=== PATIENT | male | born 1965 | race Caucasian/White ===

== ENCOUNTER → 2020-09-11 | Outpatient (CLI) | payer OTHER ==
[~2020-09-11] MED LIST: CETIRIZINE HCL10 MG PO; CHANTIX1 MG PO; FLONASE 0.05% N16 GM; KEFLEX CAP 500500 MG PO; MOBIC15 MG PO; NEURONTIN 300300 MG PO; OXYCONTIN10 MG PO; TRAZODONE HCL150 MG PO; ZANAFLEX4 M1 PO
== END ==
LOC: EXRD 09:20
DX: M25.561 Pain in right knee (principal); M17.11 Unilateral primary osteoarthritis, right knee
CPT/HCPCS: 73564

== ENCOUNTER → 2021-06-21 | Outpatient (CLI) | payer OTHER | LOC: KOH-I 06-03 15:00 | DX: F17.210 Nicotine dependence, cigarettes, uncomplicated (principal); R91.8 Other nonspecific abnormal finding of lung field | CPT/HCPCS: 71271 ==